=== PATIENT | male | born 1940 | race Caucasian/White ===

== ENCOUNTER 2018-03-17 07:54 | Inpatient (IN) | payer OTHER ==
[~2018-03-17] VITALS: Ht 182.9 cm; Wt 161.7 kg
--- NOTE | ~2018-03-17 | 2DMMODE ---
[facility] [address] [place] [address] 2 D/M-MODE ECHOCARDIOGRAM Name: XIN PORRAS Room #: 449-I ADM IN ..#: [id number] Admission: 03/17/18 Attend Phys: Christelle Christianson MD Discharge: Date of : 38 Date of Service: 03/17/18 1425 Report #: [id number] THIS REPORT FOR: //name// APPROVED REPORT Study performed: 03/17/2018 12:42:40 EXAM: Comprehensive 2D, Doppler, and color-flow Echocardiogram with contrast Patient Location: In-Patient Room #: 449 Status: routine BSA: 2.53 HR: 61 bpm BP: 191/74 mmHg Other Information Study Quality: Technically Difficult and Technically Limited Technically limited study due to body habitus, inability to position patient. Indications Diabetes Hypertension/HDD R/O cardiomyopathy Echo Enhancing Agent Indication: Endocardial border delineation Agent(s) / Amount(s) Used: Optison 4 cc 2D Dimensions RVDd: 33.28 mm IVSd: 12.86 (7-11mm) LVOT Diam: 23.67 (18-24mm) LVDd: 37.64 mm PWd: 11.91 (7-11mm) Ascending Ao: 33.13 (22-36mm) LVDs: 27.20 (25-40mm) Aortic Root: 34.34 mm IVC: 24.00 mm Volumes Left Atrial Volume (Systole) Single Plane 4CH: 54.69 mL Single Plane 2CH: 36.71 mL LA ESV Index: 19.00 mL/m2 Aortic Valve AoV Peak Yaya.: 1.20 m/s [facility] [address] [place] [address] 2 D/M-MODE ECHOCARDIOGRAM Name: XIN PORRAS Bernardo Room #: 449-I ADM IN [facility]#: [id number] Admission: 03/17/18 Attend Phys: Christelle Christianson MD Discharge: Date of : 38 Date of Service: 03/17/18 1425 Report #: [id number] AO Peak Gr.: 5.71 mmHg AI Vmax: 2.83 m/s AI [place]: 1.52 m/s2 AI PHT: 540.70 ms Mitral Valve E/A Ratio: 0.8 MV Decel. Time: 246.35 ms MV E Max Yaya.: 0.63 m/s MV A Yaya.: 0.84 m/s MV PHT: 71.44 ms IVRT: 179.93 ms Tricuspid Valve RAP Estimate: 15.00 mmHg Left Ventricle The left ventricle is normal size. Mild concentric left ventricular hypertrophy. The left ventricular systolic function is normal. The left ventricular ejection fraction is within the normal range. LVEF is 55-60%. Transmitral Doppler flow pattern suggests impaired LV relaxation. Right Ventricle The right ventricle is normal size. The right ventricular systolic function is normal. Atria The left atrium size is normal. The right atrium size is normal. Aortic Valve The aortic valve is not well visualized. Mild aortic regurgitation. There is no aortic valvular stenosis. Mitral Valve The mitral valve is normal in structure. Trace mitral regurgitation. No evidence of mitral valve stenosis. Tricuspid Valve The tricuspid valve is normal in structure. There is no tricuspid valve regurgitation noted. Unable to assess PA pressure. Pulmonic Valve Pulmonic valve is not well visualized. [facility] [place] [address] [place] [address] 2 D/M-MODE ECHOCARDIOGRAM Name: XIN PORRAS Room #: 449-I [facility] IN .R.#: [id number] Admission: 03/17/18 Attend Phys: Christelle Christianson MD Discharge: Date of : 38 Date of Service: 03/17/18 1425 Report #: [id number] [place] The aortic root is normal in size. IVC is dilated and collapses <50% with inspiration. <Conclusion> The left ventricle is normal size. Mild concentric left ventricular hypertrophy. The left ventricular systolic function is normal. Transmitral Doppler flow pattern suggests impaired LV relaxation. The right ventricle is normal size. The left atrium size is normal. The aortic valve is not well visualized. There is no aortic valvular stenosis. Trace mitral regurgitation. There is no tricuspid valve regurgitation noted. <ELECTRONICALLY SIGNED> By: Jignesh Alaniz MD 03/17/18 1425 1425 1425 Jignesh Alaniz MD /INF
--- NOTE | ~2018-03-17 | HC ---
[facility] [place] [address] CONSULTATION Name: ZOJOVANNAXIN Chang Room #: 449-I ADM IN .R.#: [id number] Admission: 03/17/18 Attend Phys: Christelle Christianson MD Discharge: Date of : 39 Report #: [id number] THIS REPORT FOR: //name// CC: Swapnil Christianson DATE OF SERVICE: 03/18/2018 WOUND CARE CONSULTATION PERSONAL PHYSICIAN: None on staff. CHIEF COMPLAINT: Bilateral lower extremity ulcerations with associated venous insufficiency and edema. HISTORY OF PRESENT ILLNESS: This is a 77-year-old white male who was sent from a skilled facility for evaluation of increasing cough and chest congestion over the past several weeks. The staff was concerned he might have pneumonia and was sent to the hospital for evaluation. The patient was admitted under the diagnosis of possible pneumonia. It was noted in the Emergency Department that the patient had significant edema in both bilateral lower extremities with chronic ulcerations. The patient states these ulcerations started out as small blisters, then opened up into ulcerations. The patient states that they do cause him some pain. The patient states that he has had previous compression wraps in the past, which do help with his swelling and with control of his ulcers. The patient is unclear as to who actually cares for his ulcers, but states he has had home health come out in the past. The patient denies any other associated ulcerations at this time. The patient states the pain is only with dressing changes and describes it as a burning-type pain without radiation. PAST MEDICAL HISTORY: Significant for pneumonia, chronic venous insufficiency with edema and recurrent ulcerations, hypertension, hyperlipidemia and type 2 diabetes. CURRENT MEDICATIONS: Multiple. I reviewed the patient's medication list. DRUG ALLERGIES: PENICILLIN. SOCIAL HISTORY: The patient states he does not smoke or drink alcohol. FAMILY HISTORY: Not pertinent to current medical condition. REVIEW OF SYSTEMS: CONSTITUTIONAL: The patient denies actual fevers or chills. NEUROLOGIC: The patient has overall generalized weakness, but no isolated weakness in the arms or legs. [facility] [address] [place] [address] CONSULTATION Name: ZOJOVANNAXIN Bernardo Room #: 449-I [facility] IN ..#: [id number] Admission: 03/17/18 Attend Phys: Christelle Christianson MD Discharge: Date of : 39 Report #: [id number] EYES: No complaints. ENT: No complaints. CARDIAC: The patient has chronic lower extremity edema, but denies chest pain or palpitations. RESPIRATORY: The patient is here for associated productive cough, dyspnea and wheezing. GASTROINTESTINAL: The patient denies nausea, vomiting or abdominal pain. GENITOURINARY: The patient denies urgency or frequency. MUSCULOSKELETAL: No complaints. SKIN: The patient has chronic ulcerations on bilateral lower extremities, which appear to be a partial thickness. PHYSICAL EXAMINATION: VITAL SIGNS: Temperature 36.8, pulse 69, respiratory rate 18 and BP 136/61. GENERAL: This is an alert and oriented x 2, person and place, not time, chronically ill-appearing white male, who is in no obvious distress. HEENT: He is normocephalic, atraumatic. Mucous membranes are somewhat dry. Pupils are round. Sclerae are white. NECK: Supple and nontender, without JVD. LUNGS: Slightly diminished breath sounds heard throughout. Occasional crackles heard throughout, occasional wheeze. CHEST: Nontender. HEART: Regular, without murmur. ABDOMEN: Obese, soft, otherwise nontender. EXTREMITIES: The patient has 3- to 4+ edema in bilateral lower extremities. There is some weeping coming from open partial-thickness ulcerations on the pretibial regions of both lower extremities, which extend posteriorly and are almost near circumferential ulcerations. They are a mixture of approximately 80% granulation tissue and 20% yellowish slough, which is loosely adherent. Rakel-ulcerations are intact, without erythema, warmth or signs of cellulitis. The drainage is serosanguineous, without odor. There is no tunneling or undermining. Distal pulses are 2+ dorsalis pedis, 1+ posterior tibial. Bilateral heels are intact. NEUROLOGIC: Cranial nerves 2-12 are grossly intact. Motor and sensory grossly intact. LABORATORY DATA: White count 6.4, hemoglobin 11.2. BUN 18 and creatinine 1.1. Albumin 2.8. Bilateral lower extremity venous Dopplers show no evidence of deep venous thrombosis. WOUND CARE COURSE: I spoke at length with the patient. He states that his legs actually do feel better once they are wrapped in a compression wrap. We will start the patient on silver alginate over the open ulcerations, cover these with an ABD and then do a 2-layer compression wrap for control of swelling. We will place these twice weekly while the patient is here in the hospital. I have encouraged the patient to maximize his oral protein supplementation for healing. [address] [address] CONSULTATION Name: XIN PORRAS Room #: 449-I [facility] IN M.R.#: [id number] Admission: 03/17/18 Attend Phys: Christelle Christianson MD Discharge: Date of : 39 Report #: [id number] The patient will continue IV antibiotics per the medical team. We will attempt to utilize physical and occupational therapy for strengthening. IMPRESSION: 1. Chronic partial-thickness ulcerations limited to breakdown of skin, bilateral lower extremities in the pretibial region, without signs of actual infection. 2. Acute respiratory illness, on IV antibiotics. 3. Venous insufficiency with edema. 4. Diabetes mellitus type 2. 5. Hypertension. 6. Protein-calorie malnutrition - moderate with albumin of 2.9. 7. Generalized debility. PLAN: Described at length as above. We will continue to follow the patient while he is here and we will put the wraps on this patient's legs later this morning. <ELECTRONICALLY SIGNED> By: Krish Pereira MD 03/21/18 1527 0752 [id number] Krish Pereira MD /nt
--- NOTE | ~2018-03-17 | EKG ---
[address] [address] ELECTROCARDIOGRAM REPORT Name: XIN PORRAS Room #: [facility].#: [id number] Admission: Attend Phys: Discharge: Date of : 39 Report #: [id number] THIS REPORT FOR: //name// [facility] ED Test Date: 2018-03-17 Test Time: 08:14:22 Pat Name: XIN PORRAS Department: Room: Gender: M Computer Network Specialist: [facility] : 1940 Requested By: Xin Mccoy Order Number: [id number] MD: Cy Lovell Measurements Intervals [place] Rate: 64 P: 18 UT: 198 QRS: 22 QRSD: 118 T: 29 QT: 559 QTc: 577 Interpretive Statements Sinus rhythm Nonspecific intraventricular conduction delay Low voltage, precordial leads Nonspecific T abnormalities, anterior leads No previous ECG available for comparison Electronically Signed On 03-17-2018 8:22:04 CDT by Cy Lovell [email or web address] <ELECTRONICALLY SIGNED> By: Cy Lovell MD 03/17/18821 3 08 Cy Lovell MD /PATRICK
--- NOTE | ~2018-03-17 | HC ---
[facility] [place] [address] CONSULTATION Name: XIN PORRAS Room #: 449-I ADM IN .R.#: [id number] Admission: 03/17/18 Attend Phys: Christelle Christianson MD Discharge: Date of : 39 Report #: [id number] THIS REPORT FOR: //name// CC: Swapnil Christianson CARDIOLOGY CONSULTATION REASON FOR CONSULTATION: Diastolic heart failure. HISTORY OF PRESENT ILLNESS: The patient is a 77-year-old who resides at a senior care facility at [place], who was admitted here on 03/17/2018 with progressive shortness of breath and low saturations. Initial chest x-ray showed pulmonary edema with bilateral pleural effusions and the patient was experiencing increased lower extremity edema. Speaking with the patient, he is a limited historian. He denies any active chest pain. He reports the shortness of breath is improved. He denies any PND or orthopnea. He denies presyncope or syncope. REVIEW OF SYSTEMS: A 12-point review of systems was performed. GENERAL: No fevers or chills. CARDIAC: As above. PULMONARY: He has had some coughing spells. GASTROINTESTINAL: No nausea or vomiting. GENITOURINARY: No dysuria. MUSCULOSKELETAL: No myalgias or arthralgias. ENDOCRINE: No heat or cold intolerance. NEUROLOGIC: No prior strokes. PAST MEDICAL HISTORY: Includes hypertension, diabetes, hypothyroidism, neuropathy, back pain and morbid obesity, BMI of 48. SOCIAL HISTORY: He does not smoke. FAMILY HISTORY: Noncontributory. ALLERGIES: INCLUDE PENICILLIN. MEDICATIONS: Include aspirin 81, Ativan, vitamin B12, Cymbalta, albuterol, Atrovent, Lasix 20 daily, gabapentin, guaifenesin, glimepiride 4 mg daily, lactulose, Synthroid 100, lidocaine transdermal patch, naproxen, oxycodone, albuterol, simvastatin 40, Tessalon Perles, acetaminophen and tizanidine. PHYSICAL EXAMINATION: VITAL SIGNS: Temperature is 36.9, pulse 83, respirations 20, blood pressure 175/100 and sats are 98%. GENERAL: He is in no acute distress, somewhat of a poor historian. He is alert [address] [address] CONSULTATION Name: XIN PORRAS Room #: 449-I [facility] IN ..#: [id number] Admission: 03/17/18 Attend Phys: Christelle Christianson MD Discharge: Date of : 39 Report #: [id number] to person, place and time, but could not remember the name of the president. HEENT: Oropharynx is clear. Sclerae are anicteric. NECK: Supple, with no thyromegaly. HEART: Regular rate and rhythm, with no murmurs, rubs or gallops. He does have elevated JVD noted at a 30-degree angle with PET-positive hepatojugular reflux. LUNGS: Demonstrate some mild crackles at the bases. ABDOMEN: Obese, but nontender. EXTREMITIES: Both are wrapped due to skin breakdown. There is some lower extremity edema noted. NEUROLOGIC: Cranial nerves 2-12 are grossly intact. LABORATORY DATA: Hemoglobin is 11, white count 8 and platelets 303,000. Potassium 3.8, creatinine 1.0. Troponin on admission was normal. ProBNP was 256. His ABG showed a pH of 7.4, pCO2 of 42 and pO2 67. Chest x-ray on admission showed positive for cephalization and some mild pulmonary edema. He did have some bilateral pleural effusions. CT of the chest was consistent with no PE, but there were moderate pleural effusions. Repeat chest x-ray actually looks like the effusions are somewhat worse. His initial EKG on 03/17/2018 showed normal sinus rhythm with a low voltage due to his obesity and no ischemic changes. He had an echocardiogram, which showed an EF of 55% to 60%, with no significant valvular abnormalities. ASSESSMENT: 1. Diastolic heart failure. 2. Hypertension, poorly controlled. 3. Diabetes. 4. Hypothyroidism. 5. Morbid obesity. SUMMARY: In summary, the patient presents with progressive shortness of breath with evidence of hypoxemia on admission and evidence of pulmonary edema on chest x-ray and bilateral pleural effusions. He has a low proBNP, but on exam, he does appear to be volume overloaded. I recommend that we up-titrate his IV diuretics to try and remove some more fluid. We will try to optimize his blood pressure as well. As there are no complaints of chest pain and troponins are normal, I will not recommend ischemic evaluation. By: 1435 0025 Cy Lovell MD /nt
--- NOTE | ~2018-03-17 | HC ---
[facility] [place] [address] CONSULTATION Name: XIN PORRAS Room #: 449-I ADM IN .R.#: [id number] Admission: 03/17/18 Attend Phys: Christelle Christianson MD Discharge: Date of : 39 Report #: [id number] THIS REPORT FOR: //name// CC: Swapnil Christianson DATE OF SERVICE: 03/21/2018 REFERRING PHYSICIAN: Dr. Sandra. REASON FOR REFERRAL: Dyspnea. HISTORY OF PRESENT ILLNESS: The patient is a 77-year-old white male who was admitted from the [place] [facility] with progressive dyspnea and cough. A pulmonary consultation was requested. The patient was admitted on the 03/17/2018. He was felt to have heart failure, possible bronchitis. The patient only had episode of possible aspiration, dyspnea and cough. For that reason, pulmonary consultation was requested. The patient states that he is somewhat better now. He complains of dyspnea, but denies any chest pain or productive cough. The patient states he has never smoked in the past. PAST MEDICAL HISTORY: Notable for hypertension; coronary artery disease; diabetes mellitus type 2; weakness for the past 5 years, is primarily bedbound; apparent diagnosis of COPD; chronic heart failure; osteoarthritis; hypothyroidism. ALLERGIES: PENICILLIN. REACTION NOT SPECIFIED. MEDICATIONS: From a [place] [facility] [place] include Aspirin, Ativan, Cymbalta, nebulized DuoNeb, Lasix, gabapentin, guaifenesin, Amaryl, Synthroid, Naprosyn, oxycodone, ProAir, senna/docusate, Zocor, Tessalon Perles, Zanaflex. FAMILY HISTORY: Noncontributory. SOCIAL HISTORY: The patient has never smoked. Denies any alcohol use. He is a resident of a [place] [facility]. REVIEW OF SYSTEMS: As mentioned above. Notable for weakness for the past 5 years where he has not been able to walk. Otherwise, 10-point system review negative. PHYSICAL EXAMINATION: [facility] [address] [place] [address] CONSULTATION Name: XIN PORRAS Room #: 449-I [facility] IN [facility]#: [id number] Admission: 03/17/18 Attend Phys: Christelle Christianson MD Discharge: Date of : 39 Report #: [id number] GENERAL: He is awake, alert, appears mildly dyspneic, otherwise in no distress. VITAL SIGNS: Temperature is 98.4 degrees Fahrenheit, pulse is 80, respiratory rate is 20, blood pressure is 136/66 mmHg, saturation 93%. HEENT: Normocephalic, atraumatic. NECK: Supple, without lymphadenopathy or thyromegaly. CHEST: Breath sounds are good bilaterally without any rales or wheezes. CARDIOVASCULAR: Normal S1, S2. There are no murmurs or gallop. There is no JVD. There is no carotid bruit. Pulses are 2+/4+ bilaterally. ABDOMEN: Obese, soft, nontender, no organomegaly or masses felt. GENITOURINARY: Deferred. RECTAL: Deferred. EXTREMITIES: Notable for 1-2+ bilateral pretibial edema. NEUROLOGIC: The patient is awake, alert, notable for weakness in the lower extremities. LABORATORY DATA: Chest x-ray and CT chest shows moderate bilateral pleural effusions. Echocardiogram showed normal LV function, normal right ventricle and right atrial size. No evidence of valvular abnormalities. Electrolytes are normal. Creatinine is normal. WBC 8400, hemoglobin 11.6, platelets are normal. No evidence of bandemia. Arterial blood gas revealed pH 7.41, pCO2 of 42, pO2 67 on room air. IMPRESSION: 1. Acute respiratory distress likely due to aspiration due to his weakness. Presently, much improved. 2. Bilateral pleural effusion due to acute on chronic diastolic heart failure. 3. Questionable history of chronic obstructive pulmonary disease. The patient may have a component of asthma, perhaps obesity-related asthma. The patient has never smoked in the past. 4. Probable dysphagia given morbid obesity along with weakness. The patient is at risk for aspiration because of his progressive weakness. The patient is currently undergoing speech evaluation. 5. Lower extremity edema. Echocardiogram noted. Suspect component of right-sided heart failure. 6. Chronic lower extremity wounds. 7. Hypothyroidism. 8. Diabetes mellitus. 9. Osteoarthritis, chronic pain. 10. Anemia due to chronic disease. 11. Obesity. 12. Progressive weakness. For the past 5 years, the patient states that he has been bedbound. RECOMMENDATION: Agree with current treatment plans including diuresis. Wean O2 for saturation 90%. We will continue bronchodilators for now. The patient should be screened for possible sleep related breathing disorder. Because he is [address] [address] CONSULTATION Name: XIN PORRAS Room #: 449-I ADM IN M.R.#: [id number] Admission: 03/17/18 Attend Phys: Christelle Christianson MD Discharge: Date of : 39 Report #: [id number] nonambulatory, outpatient sleep study may be difficult to accomplish. Overnight oximetry study may be helpful. The patient is at risk for aspiration given his debility and weakness. Overall look appears to be poor given his progressive weakness. Exogenous obesity is compounding his difficult problem. Thank you for this consultation. <ELECTRONICALLY SIGNED> By: Freedom Christensen MD 03/22/18 1611 1614 0554 Freedom Christensen MD /nt
[2018-03-17 07:55] VITALS: BP 177/78
[2018-03-17] MEDS ORDERED: ASPIR 8181 MG PO (08:24)
[2018-03-17] MEDS ORDERED: ATIVAN0.5 MG PO (08:25)
[2018-03-17 08:26] LABS: ABSOLUTE NEUTROPHILS 5.6 thou/uL (1.4-8.2); BASOPHILS 1.2 % (0.0-2.0); EOSINOPHILS 7.9 % (0.0-3.0); HEMATOCRIT 37.8 % (42.0-52.0); HEMOGLOBIN 12.1 gm/dL (14.0-18.0); LYMPHOCYTES 16.3 % (24.0-44.0); MCH 25.4 pg (26.0-34.0); MCHC 32.1 g/dL (28.0-37.0); MONOCYTES 8.9 % (1.0-8.0); PLATELET COUNT 330 thou/uL (150-400); POLYS 65.7 % (36.0-66.0); RBC 4.78 mil/uL (4.50-6.00); RDW 17.2 % (10.5-14.5); WBC 8.5 thou/uL (4.0-11.0)
[2018-03-17] MEDS ORDERED: VITAMIN B-12500 MCG PO (08:26)
[2018-03-17] MEDS ORDERED: CYMBALTA30 MG PO (08:26)
[2018-03-17] MEDS ORDERED: CHLORASEPTIC20 M1 MUCOUS MEM (08:26)
[2018-03-17] MEDS ORDERED: IPRAT-ALBUT 0.5-3 ML INH (08:27)
[2018-03-17 08:30] LABS: ANION GAP 5 mmol/L (7-16); BUN 21 mg/dL (7-18); CALCIUM 9.5 mg/dL (8.5-10.1); CHLORIDE 105 mmol/L (98-107); CO2 33 mmol/L (21-32); CREATININE 1.3 mg/dL (0.7-1.3); GLUCOSE 94 mg/dL (74-106); POTASSIUM 3.7 mmol/L (3.5-5.1); SODIUM 143 mmol/L (136-145)
[2018-03-17 08:38] LABS: TROPONIN-I <0.06 ng/mL (<0.06)
[2018-03-17] MEDS ORDERED: LASIX 20 MG TAB20 MG PO (09:00)
[2018-03-17] MEDS ORDERED: GABAPENTIN600 M1 PO (09:01)
[2018-03-17] MEDS ORDERED: AMARYL4 MG PO (09:02)
[2018-03-17] MEDS ORDERED: [UNRECOGNIZED DRUG - OTHER] PO (09:02)
[2018-03-17] MEDS ORDERED: GERI-TUSSI100 MG/5 M PO (09:02)
[2018-03-17] MEDS ORDERED: CONSTULOSE10 GM/152 PO (09:03)
[2018-03-17] MEDS ORDERED: SYNTHROID100 MC1 PO (09:03)
[2018-03-17] MEDS ORDERED: NAPROSYN500 MG PO (09:04)
[2018-03-17] MEDS ORDERED: OXYCODONE HCL 55 MG PO (09:04)
[2018-03-17] MEDS ORDERED: LIDODERM1 EACH TRANSDERM (09:04)
[2018-03-17] MEDS ORDERED: PROAIR HFA8.5 GM INH (09:06)
[2018-03-17 10:24] VITALS: BP 191/74
[2018-03-17] MEDS ORDERED: SENNA-DOCUSATE1 EAC1 PO (10:30)
[2018-03-17] MEDS ORDERED: TESSALON PERLE100 MG PO (10:30)
[2018-03-17] MEDS ORDERED: SIMVASTATIN40 MG PO (10:30)
[2018-03-17] MEDS ORDERED: ZANAFLEX4 MG PO (10:31)
[2018-03-17] MEDS ORDERED: TYLENOL EXTRA500 MG PO (10:31)
[2018-03-17 10:58] LABS: HCO3 26.8 mmol/L (22.0-26.0); PCO2 42.6 mmHg (35.0-45.0); pH 7.417 (7.360-7.450); sO2 93.6 % (92.0-98.0)
[2018-03-17 12:15] VITALS: BP 191/74
[2018-03-17 12:45] VITALS: BP 170/84
[2018-03-17 15:22] VITALS: BP 149/63
[2018-03-17 19:12] VITALS: BP 141/72
[2018-03-18 05:30] LABS: HEMATOCRIT 35.5 % (42.0-52.0); HEMOGLOBIN 11.2 gm/dL (14.0-18.0); MCH 24.9 pg (26.0-34.0); MCHC 31.6 g/dL (28.0-37.0); MCV 78.6 fL (80.0-100.0); RBC 4.52 mil/uL (4.50-6.00); RDW 17.2 % (10.5-14.5); WBC 6.4 thou/uL (4.0-11.0)
[2018-03-18 05:39] LABS: ALBUMIN 2.8 g/dL (3.4-5.0); CALCIUM 8.9 mg/dL (8.5-10.1); CREATININE 1.1 mg/dL (0.7-1.3); POTASSIUM 3.4 mmol/L (3.5-5.1)
[2018-03-18 07:10] VITALS: BP 135/68
[2018-03-18 19:08] VITALS: BP 134/58
[2018-03-18 23:01] VITALS: BP 134/58
[2018-03-19 07:22] VITALS: BP 136/61
[2018-03-19 16:13] VITALS: BP 146/62
[2018-03-19 19:23] VITALS: BP 145/62
[2018-03-19 23:00] VITALS: BP 145/62
[2018-03-20 04:46] LABS: ABSOLUTE NEUTROPHILS 5.6 thou/uL (1.4-8.2); BASOPHILS 1.1 % (0.0-2.0); EOSINOPHILS 0.7 % (0.0-3.0); HEMATOCRIT 35.9 % (42.0-52.0); HEMOGLOBIN 11.6 gm/dL (14.0-18.0); LYMPHOCYTES 11.3 % (24.0-44.0); MCH 25.2 pg (26.0-34.0); MCHC 32.5 g/dL (28.0-37.0); MCV 77.6 fL (80.0-100.0); MONOCYTES 9.1 % (1.0-8.0); PLATELET COUNT 307 thou/uL (150-400); POLYS 77.8 % (36.0-66.0); RBC 4.62 mil/uL (4.50-6.00); RDW 16.8 % (10.5-14.5); WBC 7.2 thou/uL (4.0-11.0)
[2018-03-20 05:02] LABS: CALCIUM 8.9 mg/dL (8.5-10.1); POTASSIUM 3.6 mmol/L (3.5-5.1)
[2018-03-20 07:35] VITALS: BP 147/62
[2018-03-20 16:22] VITALS: BP 149/68
[2018-03-20 19:20] VITALS: BP 1366/66
[2018-03-20 23:41] VITALS: BP 1366/66
[2018-03-21 05:31] LABS: ABSOLUTE NEUTROPHILS 6.1 thou/uL (1.4-8.2); BASOPHILS 1.1 % (0.0-2.0); EOSINOPHILS 1.1 % (0.0-3.0); HEMOGLOBIN 11.6 gm/dL (14.0-18.0); LYMPHOCYTES 15.8 % (24.0-44.0); MCHC 32.2 g/dL (28.0-37.0); MCV 77.5 fL (80.0-100.0); PLATELET COUNT 303 thou/uL (150-400); RBC 4.64 mil/uL (4.50-6.00); RDW 17.1 % (10.5-14.5); WBC 8.4 thou/uL (4.0-11.0)
[2018-03-21 05:38] LABS: POTASSIUM 3.8 mmol/L (3.5-5.1)
[2018-03-21 08:00] VITALS: BP 175/100
[2018-03-21 17:05] VITALS: BP 173/78
[2018-03-21 19:10] VITALS: BP 138/61
[2018-03-22 05:52] LABS: ABSOLUTE NEUTROPHILS 6.4 thou/uL (1.4-8.2); BASOPHILS 1.3 % (0.0-2.0); HEMATOCRIT 37.9 % (42.0-52.0); HEMOGLOBIN 11.8 gm/dL (14.0-18.0); LYMPHOCYTES 17.6 % (24.0-44.0); MCH 24.4 pg (26.0-34.0); MCHC 31.2 g/dL (28.0-37.0); MCV 78.1 fL (80.0-100.0); MONOCYTES 10.1 % (1.0-8.0); PLATELET COUNT 317 thou/uL (150-400); RBC 4.85 mil/uL (4.50-6.00); RDW 17.3 % (10.5-14.5); WBC 9.1 thou/uL (4.0-11.0)
[2018-03-22 05:59] LABS: CALCIUM 9.2 mg/dL (8.5-10.1); CREATININE 1.1 mg/dL (0.7-1.3); POTASSIUM 3.8 mmol/L (3.5-5.1)
[2018-03-22 07:35] VITALS: BP 137/74
[2018-03-22 20:00] VITALS: BP 135/73
[2018-03-23 05:34] LABS: ABSOLUTE NEUTROPHILS 7.5 thou/uL (1.4-8.2); BASOPHILS 0.9 % (0.0-2.0); EOSINOPHILS 1.5 % (0.0-3.0); HEMATOCRIT 36.7 % (42.0-52.0); HEMOGLOBIN 11.7 gm/dL (14.0-18.0); LYMPHOCYTES 18.7 % (24.0-44.0); MCH 24.7 pg (26.0-34.0); MCHC 31.9 g/dL (28.0-37.0); MCV 77.3 fL (80.0-100.0); MONOCYTES 10.1 % (1.0-8.0); PLATELET COUNT 279 thou/uL (150-400); POLYS 68.8 % (36.0-66.0); RBC 4.75 mil/uL (4.50-6.00); RDW 17.3 % (10.5-14.5); WBC 10.9 thou/uL (4.0-11.0)
[2018-03-23 05:44] LABS: CALCIUM 8.9 mg/dL (8.5-10.1); POTASSIUM 3.7 mmol/L (3.5-5.1)
[2018-03-23 09:16] VITALS: BP 124/62
[2018-03-23 14:13] LABS: URINE BILIRUBIN NEGATIVE (Negative); URINE BLOOD 3+ (Negative); URINE CLARITY CLEAR; URINE COLOR YELLOW; URINE GLUCOSE-RANDOM* NEGATIVE (Negative); URINE KETONES NEGATIVE (Negative); URINE PROTEIN (DIPSTICK) NEGATIVE (Negative)
[2018-03-23 14:18] LABS: URINE LEUKOCYTES-REFLEX 2+ (Negative); URINE NITRITE-REFLEX POSITIVE (Negative)
[2018-03-23 14:34] LABS: CASTS None Seen /LPF (None Seen); CRYSTALS None Seen /LPF (None Seen); SQUAMOUS None Seen /LPF (0-3); URINE WBC-REFLEX 6-15 Few /HPF (0-5)
[2018-03-23 19:10] VITALS: BP 134/75
[2018-03-24 05:27] LABS: ABSOLUTE NEUTROPHILS 7.1 thou/uL (1.4-8.2); BASOPHILS 1.2 % (0.0-2.0); EOSINOPHILS 1.5 % (0.0-3.0); HEMATOCRIT 37.3 % (42.0-52.0); HEMOGLOBIN 11.9 gm/dL (14.0-18.0); LYMPHOCYTES 17.7 % (24.0-44.0); MCH 24.7 pg (26.0-34.0); MCHC 31.8 g/dL (28.0-37.0); MCV 77.8 fL (80.0-100.0); MONOCYTES 8.9 % (1.0-8.0); PLATELET COUNT 276 thou/uL (150-400); POLYS 70.7 % (36.0-66.0); RDW 17.7 % (10.5-14.5)
[2018-03-24 05:36] LABS: CALCIUM 8.8 mg/dL (8.5-10.1); CREATININE 1.1 mg/dL (0.7-1.3)
[2018-03-24 08:00] VITALS: BP 120/73
[2018-03-24 19:08] VITALS: BP 115/73
[2018-03-25 07:23] VITALS: BP 118/68
[2018-03-25] MEDS ORDERED: POTASSIUM20 PO (14:01)
[2018-03-25] MEDS ORDERED: NOVOLOG100 UNIT/1 SUBQ (14:01)
[2018-03-25] MEDS ORDERED: LISINOPRIL10 MG PO (14:01)
[2018-03-25] MEDS ORDERED: TOPROL XL25 MG PO (14:01)
[2018-03-25] MEDS ORDERED: LASIX 40 MG TAB40 MG PO (14:01)
[2018-03-25] MEDS ORDERED: LEVAQUIN 500 M500 M2 PO (14:02)
== END 2018-03-25 16:14 | DRG 291 ==
LOC: ER 07:54 → EROBS 09:19 → 4W 09:19
PROVIDERS: Emergency Medicine; Family Medicine; Internal Medicine; Internal Medicine Pulmonary Disease
DX: I11.0 Hypertensive heart disease with heart failure (principal); J96.01 Acute respiratory failure with hypoxia; L97.821 Non-pressure chronic ulcer of other part of left lower leg limited to breakdown of skin; L97.811 Non-pressure chronic ulcer of other part of right lower leg limited to breakdown of skin; E44.0 Moderate protein-calorie malnutrition; Z68.42 Body mass index [BMI] 45.0-49.9, adult; N39.0 Urinary tract infection, site not specified; I50.33 Acute on chronic diastolic (congestive) heart failure; E03.9 Hypothyroidism, unspecified; E78.5 Hyperlipidemia, unspecified; I25.10 Atherosclerotic heart disease of native coronary artery without angina pectoris; R29.6 Repeated falls; E53.8 Deficiency of other specified B group vitamins; E11.42 Type 2 diabetes mellitus with diabetic polyneuropathy; K59.00 Constipation, unspecified; R07.0 Pain in throat; F32.9 Major depressive disorder, single episode, unspecified; R32 Unspecified urinary incontinence; D63.8 Anemia in other chronic diseases classified elsewhere; M19.90 Unspecified osteoarthritis, unspecified site; I87.2 Venous insufficiency (chronic) (peripheral); E66.01 Morbid (severe) obesity due to excess calories; Z79.82 Long term (current) use of aspirin; Z74.01 Bed confinement status; Z79.899 Other long term (current) drug therapy; Z88.0 Allergy status to penicillin
CPT/HCPCS: 10045